=== PATIENT | female | born 1955 | race Caucasian/White ===

== ENCOUNTER → 2018-05-01 | Outpatient (CLI) | payer OTHER ==
[~2018-05-01] MED LIST: CALCIUM 500 +1 EACH PO; CALCIUM CITRAT1 EA15 PO; ESSENTIAL WOMA1 EAC1 PO; FISH OIL 1,0001 EAC7 PO; IMVEXXY10 MCG VG; MOTRIN800 MG PO; PRILOSEC OTC20 MG PO
== END | disposition home or self-care (01) ==
LOC: CDC 13:10
DX: Z01.810 Encounter for preprocedural cardiovascular examination (principal); I49.8 Other specified cardiac arrhythmias
CPT/HCPCS: 93000

== ENCOUNTER 2018-05-08 09:50 | Inpatient (IN) | payer OTHER ==
[~2018-05-08] VITALS: Ht 162.6 cm; Wt 76.3 kg
[2018-06-13] MEDS ORDERED: ATIVAN0.5 MG PO (08:01)
[2018-06-19 06:18] VITALS: BP 171/78
[2018-06-19 11:44] VITALS: BP 145/73
[2018-06-19 17:29] VITALS: BP 158/76
[2018-06-19 19:32] VITALS: BP 154/74
[2018-06-20 01:08] VITALS: BP 160/72
[2018-06-20 05:23] VITALS: BP 118/72
[2018-06-20 07:00] VITALS: BP 120/70
[2018-06-20 07:25] LABS: BASOPHIL (%) 0.5 % (0-1); BASOPHIL COUNT 0.1 K/uL (0-0.1); EOSINOPHIL (%) 0.6 % (0-5); EOSINOPHIL COUNT 0.1 K/uL (0-0.3); HEMATOCRIT 39.5 % (36.0-46.0); HEMOGLOBIN 13.3 G/DL (11.9-15.5); IMMATURE GRANULOCYTE (%) 0.3 % (0.0-0.7); LYMPHOCYTE (%) 13.8 % (15-42); LYMPHOCYTE COUNT 1.6 K/uL (1.0-2.8); MCH 30.6 PG (29.0-34.0); MCHC 33.7 G/DL (30.0-36.0); MCV 90.8 FL (83-99); MONOCYTE (%) 10.3 % (3-12); MONOCYTE COUNT 1.2 K/uL (0-0.8); NEUTROPHIL (%) 74.5 % (45-76); NEUTROPHIL COUNT 8.7 K/uL (1.8-6.4); PLATELET COUNT 280 K/uL (156-360); RBC DIS.WIDTH-SD 43.1 % (39-53); RED BLOOD COUNT 4.35 M/uL (3.80-5.20); WHITE BLOOD COUNT 11.7 K/uL (4.1-10.2)
[2018-06-20 07:47] LABS: CHLORIDE 106 MEQ/L (99-109); CREATININE 0.6 MG/DL (0.6-1.3); GFR ESTIMATE (CALCULATED) > 59 mL/min/; GLUCOSE 99 mg/dL (70-99); POTASSIUM 4.4 MEQ/L (3.7-5.4); SODIUM 140 MEQ/L (136-147); UREA NITROGEN (BUN) 8 mg/dL (9-23)
[2018-06-20 16:35] VITALS: BP 115/75
[2018-06-20 20:02] VITALS: BP 127/68
[2018-06-20 23:01] VITALS: BP 123/59
[2018-06-21 06:14] LABS: BASOPHIL (%) 0.5 % (0-1); EOSINOPHIL (%) 5.1 % (0-5); EOSINOPHIL COUNT 0.4 K/uL (0-0.3); HEMATOCRIT 38.3 % (36.0-46.0); HEMOGLOBIN 12.8 G/DL (11.9-15.5); IMMATURE GRANULOCYTE (%) 0.1 % (0.0-0.7); LYMPHOCYTE (%) 14.2 % (15-42); LYMPHOCYTE COUNT 1.2 K/uL (1.0-2.8); MCH 30.4 PG (29.0-34.0); MCHC 33.4 G/DL (30.0-36.0); MONOCYTE (%) 9.9 % (3-12); MONOCYTE COUNT 0.9 K/uL (0-0.8); NEUTROPHIL (%) 70.2 % (45-76); NEUTROPHIL COUNT 6.1 K/uL (1.8-6.4); PLATELET COUNT 238 K/uL (156-360); RBC DIS.WIDTH-CV 13.2 % (11.8-14.6); RBC DIS.WIDTH-SD 43.8 % (39-53); RED BLOOD COUNT 4.21 M/uL (3.80-5.20); WHITE BLOOD COUNT 8.7 K/uL (4.1-10.2)
[2018-06-21 07:01] LABS: CHLORIDE 107 MEQ/L (99-109); CREATININE 0.6 MG/DL (0.6-1.3); GFR ESTIMATE (CALCULATED) > 59 mL/min/; GLUCOSE 101 mg/dL (70-99); SODIUM 140 MEQ/L (136-147); UREA NITROGEN (BUN) 11 mg/dL (9-23)
[2018-06-21 07:35] VITALS: BP 131/67
== END 2018-06-21 16:04 | disposition home or self-care (01) | DRG 743 ==
LOC: 2SOUTH → ENRESERV 06-18 21:05 → 2SOUTH 06-19 05:26 → 2EASTP 06-19 05:26 → 2SOUTH 06-19 08:50 → ENRESERV 06-19 10:53 → 2SOUTH 06-19 11:08 → 2EASTP 06-19 11:42 → 2SOUTH 06-19 13:04 → 2EASTP 06-21 16:04
PROVIDERS: Obstetrics & Gynecology Gynecology
DX: N81.4 Uterovaginal prolapse, unspecified (principal); N95.2 Postmenopausal atrophic vaginitis; E66.3 Overweight; Z68.28 Body mass index [BMI] 28.0-28.9, adult
CPT/HCPCS: 80048; 85025; 87086; 88307; 94799; C1781; J0690; J1100; J1170; J1650; J1885; J2001; J2250; J2405; J2710; J2765; J3010; J3475; J7120; J7643